=== PATIENT | male | born 1990 | race Hispanic/Latino ===

== ENCOUNTER 2018-07-24 11:02 | Emergency (ER) | payer OTHER | END 2018-07-24 11:21 | disposition home or self-care (01) | LOC: EDH 11:02 | DX: Z20.2 Contact with and (suspected) exposure to infections with a predominantly sexual mode of transmission (principal) | CPT/HCPCS: 99281 ==

== ENCOUNTER 2019-05-30 23:04 | Emergency (ER) | payer OTHER | END 2019-05-31 00:06 | disposition home or self-care (01) | LOC: EDH 23:04 | DX: Z02.83 Encounter for blood-alcohol and blood-drug test (principal) ==

== ENCOUNTER 2022-11-08 20:06 | Emergency (ER) | payer OTHER ==
[~2022-11-08] VITALS: Ht 160 cm; Wt 81.6 kg
[2022-11-08 20:09] VITALS: BP 110/56
[2022-11-08] MEDS ORDERED: AMOX1TAB16 PO (21:03)
== END 2022-11-08 21:31 | disposition home or self-care (01) ==
LOC: EDH 20:06
DX: S81.831A Puncture wound without foreign body, right lower leg, initial encounter (principal); S81.851A Open bite, right lower leg, initial encounter; W54.0XXA Bitten by dog, initial encounter; Y93.89 Activity, other specified; Y92.89 Other specified places as the place of occurrence of the external cause; Y99.8 Other external cause status